=== PATIENT | male | born 1980 | race Two or more races ===

== ENCOUNTER 2025-03-18 12:18 | Emergency (ER) | payer OTHER ==
[~2025-03-18] VITALS: Ht 185.4 cm; Wt 206.2 kg
--- NOTE | 2025-03-18 12:53 | ED.PDOC ---
HPI Comments 44 y.o male with PMHx of HTN, presents to the ED for a chief complaint of left sided chest pain radiating to his left upper arm that started at 8:30am while driving at work. Patient stopped at a yard to call 911, states on scene paramedics measured his blood pressure, which was 183 systolic. Patient refused transport to the ED so he called his who took him to [place] [facility] and then was referred to the ED for a full cardiac evaluation. Patient describes pain as sharp, is intermittent, lasted 30-40 minutes when it first presented and has decreased slightly since arriving to the ED. Patient denies any nausea, vomiting, diarrhea, fever, chills, or SOB. He denies any recent anxiety, substance, alcohol or tobacco use. Chief Complaint: Chest Pain Time Seen by MD: 12:37 Reviewed Notes: Nurses Notes, Medications, Allergies Allergies: Coded Allergies: NO KNOWN ALLERGIES (Unverified , 03/18/25) Home Meds Active Scripts Nitroglycerin (NTROSTAT SUBLINGUAL) 0.4 Mg Sl, 0.4 MG SL PRN, #30 TAB PRN CHEST PAIN *MAY REPEAT EVERY 5 MINUTES X 3 TOTAL IF NO RELIEF. Call 911 if no relief after 2 doses. *Do not crush. Prov:KAMALA SAENZ MD 03/18/25 Aspirin (Aspir-81) 81 Mg Tab, 1 TAB PO DAILY, #30 TAB 5 Refills Prov:KAMALA SAENZ MD 03/18/25 Information Source: Patient Mode of Arrival: Ambulatory Severity: Moderate Timing: Hours Duration: Since onset Location: Chest (L) Radiation: Arm (L) Quality: Sharp Onset: At Rest Cardiac Risk Factors: HTN PE Risk Factors: None History of: None Modifying Factors: Nothing Associated Signs and Symptoms: None Past Medical History PAST MEDICAL HISTORY: HTN Surgical History (Other): left knee Family History Family History: Reviewed,noncontributory to illness Social History Smoker: Non-Smoker Alcohol: Denies ETOH Use Drugs: Denies Drug Use Lives In: Home Constitutional: denies: chills, diaphoresis, fatigue, fever, malaise, sweats, weakness, others EENTM: denies: blurred vision, double vision, ear bleeding, ear discharge, ear drainage, ear pain, ear ringing, eye pain, eye redness, hearing loss, mouth pain, mouth swelling, nasal discharge, nose bleeding, nose congestion, nose pain, photophobia, tearing, throat pain, throat swelling, voice changes, others Respiratory: denies: cough, hemoptysis, orthopnea, SOB at rest, shortness of breath, SOB with excertion, stridor, wheezing, others Cardiovascular: reports: chest pain, left arm pain; denies: dizzy spells, diaphoresis, Dyspnea on exertion, edema, irregular heart beat, lightheadedness, palpitations, PND, syncope, others Gastrointestinal: denies: abdomen distended, abdominal pain, blood streaked bowels, constipated, diarrhea, dysphagia, difficulty swallowing, hematemesis, melena, nausea, poor appetite, poor fluid intake, rectal bleeding, rectal pain, vomiting, others Genitourinary: denies: burning, dysuria, flank pain, frequency, hematuria, in continence, penile discharge, penile sore, pain, testicle pain, testicle swelling, urgency, others Neurological: denies: dizziness, fainting, headache, left sided numbness, left sided weakness, numbness, paresthesia, pre-existing deficit, right sided numbness, right sided weakness, seizure, speech problems, tingling, tremors, weakness, others Musculoskeletal: denies: back pain, gout, joint pain, joint swelling, muscle pain, muscle stiffness, neck pain, others Integumetry: denies: bruises, change in color, change in hair/nails, dryness, laceration, lesions, lumps, rash, wounds, others Allergic/Immunocompromised: denies: Difficulty Healing, Frequent Infections, Hives, Itching, others Hematologic/Lymphatic: denies: anemia, blood clots, easy bleeding, easy bruising, swollen glands, others Endocrine: denies: excessive hunger, excessive sweating, excessive thirst, excessive urination, flushing, intolerance to cold, intolerance to heat, unexplained weight gain, unexplained weight loss, others Psychiatric: denies: anxiety, bipolar disorder, depression, hopeless, panic disorder, schizophrenia, sleepless, suicidal, others All Other Systems: Reviewed and Negative Physical Exam General Appearance: No Apparent Distress, Obese HEENT: Other (Pupils and face symmetric. Moist mucous membranes.) Neck: Full Range of Motion, Normal Inspection Respiratory: Lungs Clear, No Accessory Muscle Use, No Respiratory Distress, Normal Breath Sounds Cardiovascular: No Edema, No JVD, Regular Rate/Rhythm Breast Exam: Deferred Gastrointestinal: Non Tender, Soft Genitalia: Deferred Pelvic: Deferred Rectal: Deferred Extremities: Normal inspection, Normal range of motion, Non-tender, No pedal edema Neurologic: Alert (Oriented x4), Normal Affect, Normal Mood, Other (Ambulatory without difficulty) Cerebellar Function: NOT DONE Reflexes: NOT DONE Skin: Dry, Normal Color, Warm Lymphatic: NOT DONE EKG EKG #1: Comments Sinus rhythm, rate 98, normal intervals, normal axis, normal QRS, nonspecific T changes. EKG #2: Comments Sinus tach, rate 101, normal intervals, normal axis, normal QRS, nonspecific T changes. No significant change from EKG 1. Was a procedure done? Was a procedure done?: No CP Differential Dx Differential Diagnosis: Anxiety / Panic Attack, LA, Pulmonary Embolus Differential Diagnosis: CHF Differential Diagnosis: Angina, Aortic dissection, Chest Wall Pain, Costochondritis, Esophageal reflux/spasm, Gastritis, Pericarditis, Pneumonia, Pneumothorax X-Ray, Labs, Meds, VS Vital Signs Date Time Temp Pulse Resp B/P (MAP) Pulse Ox O2 Delivery O2 Flow Rate FiO2 03/18/25 13:20 99.2 101 16 161/71 (101) 95 99.2 03/18/25 13:19 101 03/18/25 12:24 98 03/18/25 12:20 98.7 102 16 163/72 (102) 96 98.7 Lab Test 03/18/25 15:39 03/18/25 13:20 03/18/25 12:29 Range/Units Troponin I High Sensitivity 3 L 3 L 3 L </=54 ng/L White Blood Count 7.9 4.4-10.8 10^3/uL Red Blood Count 5.05 4.5-5.90 10^6/uL Hemoglobin 14.0 13.5-17.5 g/dL Hematocrit 42.0 41.0-53.0 % Mean Corpuscular Volume 83.2 80.0-100.0 fL Mean Corpuscular Hemoglobin 27.7 L 28.0-32.0 pg Mean Corpuscular Hemoglobin Concent 33.2 32.0-36.0 g/dL Red Cell Distribution Width 15.4 H 11.8-14.3 % Platelet Count 235 140-450 10^3/uL Mean Platelet Volume 8.4 6.9-10.8 fL Neutrophils (%) (Auto) 62.4 37.0-80.0 % Lymphocytes (%) (Auto) 29.1 10.0-50.0 % Monocytes (%) (Auto) 5.2 0.0-12.0 % Eosinophils (%) (Auto) 2.6 0.0-7.0 % Basophils (%) (Auto) 0.7 0.0-2.0 % Neutrophils # (Auto) 4.9 1.6-8.6 10 ^3/uL Lymphocytes # (Auto) 2.3 0.4-5.4 10 ^3/uL Monocytes # (Auto) 0.4 0-1.3 10 ^3/uL Eosinophils # (Auto) 0.2 0-0.8 10 ^3/uL Basophils # (Auto) 0.1 0-0.2 10 ^3/uL Nucleated Red Blood Cells 0.1 % D-Dimer, Quantitative 0.44 0.0-0.49 mg/L FEU Sodium Level 139 136-145 mmol/L Potassium Level 4.2 3.5-5.1 mmol/L Chloride Level 104 98-107 mmol/L Carbon Dioxide Level 26 20-31 mmol/L Anion Gap 9 5-15 Blood Urea Nitrogen 20 9-23 mg/dL Creatinine 0.88 0.700-1.30 mg/dL Glomerular Filtration Rate Calc 108 >90 mL/min BUN/Creatinine Ratio 22.7 H 10.0-20.0 Serum Glucose 110 H 74-106 mg/dL Calcium Level 9.7 8.7-10.4 mg/dL B-Type Natriuretic Peptide 24.66 0-100 pg/mL Current Medications Medications (Trade) Dose Ordered Sig/Roberto Route Start Time Stop Time Status Last Admin Ketorolac Tromethamine (Toradol Injection) 60 mg ONCE ONCE IM 03/18/25 13:00 03/18/25 13:01 DC 03/18/25 13:17 CHEST RADIOGRAPH Indication: cp Technique: Single frontal view of the chest was obtained Comparison: None FINDINGS: Lines and Tubes: None Lungs: Right medial lower lung zone opacity Pleura: No effusion. No pneumothorax. Cardiomediastinal contours: Unremarkable Bones: No acute osseous abnormality. IMPRESSION: Right medial lower lung zone pneumonia/atelectasis. X-Ray, Labs, Meds, VS Comment 44-year-old male with a history of hypertension and obesity brought in by irma baum, referred by [place] [facility] for evaluation of chest pain that started at 8:30 a.m. Vitals remarkable for heart rate 102, BP 163 over 72 Exam unremarkable Rhythm strip independently interpreted by me: Sinus rhythm, rate 88, no ectopy. Chest x-ray: IMPRESSION: Right medial lower lung zone pneumonia/atelectasis. CBC, basic metabolic panel, BNP and 3 serial troponins unremarkable, D-dimer unremarkable Patient treated with the following in the ED: Toradol 60 mg IM, aspirin 325 mg p.o., nitro patch 0.4 mg transdermal On re-evaluation, patient states pain has improved. Blood pressure has improved. Vitals were stable. Hospitalization was considered, however patient had rapid improvement of symptoms with treatment in the ED, cardiac workup is unremarkable, and I no longer feel hospitalization is necessary. Favor atelectasis over pneumonia as the etiology of the right medial lower lung zone findings on x-ray. Patient is morbidly obese, and denies any respiratory/infectious type symptoms. Patient now appears stable for discharge with close outpatient follow-up with his primary physician for referral to a manufacturing supervisor. Rx aspirin, nitroglycerin Time of 1ST Reevaluation: 13:01 Reevaluation 1ST: Unchanged Time of 2ND Reevaluation: 15:37 Reevaluation 2ND: Improved Patient Education/Counseling: Diagnosis, Treatment, Prognosis Family Education/Counseling: No Family Present Departure 1 Departure Time of Disposition: 15:38 Impression: Primary Impression: Chest pain Qualified Codes: R07.9 - Chest pain, unspecified Disposition: 01 HOME / SELF CARE / HOMELESS Condition: Stable Additional Instructions: Your blood tests, including screening test for heart attack, heart failure and blood clots in your lungs, were unremarkable. Your EKGs were unremarkable. I have prescribed medication for your symptoms. Follow-up with your primary doctor in 1-2 days for referral to a manufacturing supervisor for further evaluation of your chest pain. e-Prescriptions Nitroglycerin (NTROSTAT SUBLINGUAL) 0.4 Mg Sl 0.4 MG SL PRN, #30 TAB PRN CHEST PAIN *MAY REPEAT EVERY 5 MINUTES X 3 TOTAL IF NO RELIEF. Call 911 if no relief after 2 doses. *Do not crush. Prov: KAMALA SAENZ MD 03/18/25 Aspirin (Aspir-81) 81 Mg Tab 1 TAB PO DAILY, #30 TAB 5 Refills Prov: KAMALA SAENZ MD 03/18/25 Discharged With: Spouse Critical Care Note Critical Care Time?: No Stability Stability form required: No Heart Score Heart Score: Heart Score Response (Comments) Value History Slightly Suspicious [address]-Deviation 2 Age 45-64 1 Risk Factors 1 or 2 risk factors 1 Troponin Normal limit 0 Total 4 I personally scribed for KAMALA SAENZ MD ([email or web address]) on 03/18/25 at 12:53. Electronically submitted by Zeenat Olsen ([facility]). I personally scribed for KAMALA SAENZ MD ([email or web address]) on 03/18/25 at 13:14. Electronically submitted by Zeenat Olsen ([facility]). I personally scribed for KAMALA SAENZ MD ([email or web address]) on 03/18/25 at 13:39. Electronically submitted by Zeenat Olsen ([facility]). KAMALA SAENZ MD Mar 18, 2025 12:53
[2025-03-18 13:09] LABS: Basophils # (auto) 0.1 10 ^3/uL (0-0.2); Basophils % (auto) 0.7 % (0.0-2.0); Chloride 104 mmol/L (98-107); Eosinophils # (auto) 0.2 10 ^3/uL (0-0.8); Eosinophils % (auto) 2.6 % (0.0-7.0); Lymphocytes # (auto) 2.3 10 ^3/uL (0.4-5.4); Lymphocytes % (auto) 29.1 % (10.0-50.0); Mean Corpuscular Hemoglobin 27.7 pg (28.0-32.0); Mean Corpuscular Hgb Conc. 33.2 g/dL (32.0-36.0); Mean Corpuscular Volume 83.2 fL (80.0-100.0); Monocytes # (auto) 0.4 10 ^3/uL (0-1.3); Monocytes % (auto) 5.2 % (0.0-12.0); Neutrophils # (auto) 4.9 10 ^3/uL (1.6-8.6); Neutrophils % (auto) 62.4 % (37.0-80.0); Nucleated Red Blood Cells % 0.1 %; Platelet Count (auto) 235 10^3/uL (140-450); Potassium 4.2 mmol/L (3.5-5.1); Red Blood Cells 5.05 10^6/uL (4.5-5.90); Red Cell Distribution Width 15.4 % (11.8-14.3); Sodium 139 mmol/L (136-145); White Blood Cell 7.9 10^3/uL (4.4-10.8)
[2025-03-18 13:10] LABS: Anion Gap 9 (5-15); Carbon Dioxide 26 mmol/L (20-31)
[2025-03-18 13:11] LABS: Calcium 9.7 mg/dL (8.7-10.4)
[2025-03-18 13:15] LABS: BUN/Creatinine Ratio 22.7 (10.0-20.0); Blood Urea Nitrogen 20 mg/dL (9-23)
[2025-03-18 13:16] LABS: Glucose 110 mg/dL (74-106)
[2025-03-18] MEDS: KETOROLAC TROMETH 60MG/2ML VIAL IM ONE (13:17)
--- NOTE | 2025-03-18 13:17 | DVH ---
CHEST RADIOGRAPH Indication: cp Technique: Single frontal view of the chest was obtained Comparison: None FINDINGS: Lines and Tubes: None Lungs: Right medial lower lung zone opacity Pleura: No effusion. No pneumothorax. Cardiomediastinal contours: Unremarkable Bones: No acute osseous abnormality. IMPRESSION: Right medial lower lung zone pneumonia/atelectasis.
[2025-03-18 13:20] VITALS: BP 161/71; PULSE 101; RESP 16; TEMP 99.2; O2SAT 95
--- NOTE | 2025-03-18 13:20 | ECG ---
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
[2025-03-18] MEDS ORDERED: NITR0.4S29 SL (15:43)
[2025-03-18] MEDS ORDERED: ASPI1TAB20 PO (15:43)
[2025-03-18] MEDS ORDERED: NITROGLYCERIN 0.4MG/HR TOPICAL PATCH TD ONE (15:45)
[2025-03-18] MEDS ORDERED: ASPirin 325 MG TAB PO ONE (15:45)
== END 2025-03-18 18:16 | disposition home or self-care (01) ==
LOC: ER 12:28
DX: R07.89 Other chest pain (principal); M79.602 Pain in left arm; I10 Essential (primary) hypertension; Z79.82 Long term (current) use of aspirin; Z79.899 Other long term (current) drug therapy; Z98.890 Other specified postprocedural states
CPT/HCPCS: 36415; 71045; 80048; 83880; 84484; 85025; 85379; 93005; 96372; 99285; J1885